=== PATIENT | female | born 1935 | race Caucasian/White ===

== ENCOUNTER 2019-03-24 08:28 | Inpatient (IN) ==
--- NOTE | 2019-03-24 09:22 | Diag Imaging Result Doc PS360 ---
EXAM: HIP 1 VIEW LEFT 03/24/2019 HISTORY: hip fracture by rad report TECHNIQUE: Left hip one view COMMENT: There is a fracture of the lower femoral neck. This was not present at the time the CT examination of 03/07/2018. There are no previous plain radiographs available for comparison. There are old fractures of the inferior pubic rami and of the superior pubic ramus on the left. This was the case at the time the previous CT exam. IMPRESSION: Osteoporosis. Fracture of the left femoral neck. Electronically signed by Kane Interiano 03/24/2019 9:20 AM
--- NOTE | 2019-03-24 09:34 | PROVIDER DOCUMENTATION ---
HPI-General Adult - General Chief Complaint: Hip Injury Stated Complaint: hip fracture Time Seen by Provider: 03/24/19 09:27 Source: patient Allergies/Adverse Reactions: Patient Allergies Allergy/AdvReac Type Severity Reaction Status Date / Time promethazine HCl * Allergy Unknown Unknown Verified 03/24/19 09:58 [From Phenergan] quinine Allergy Unknown Verified 03/24/19 09:58 Home Medications: Home Medication List Medication Instructions Recorded Confirmed Last Taken Type Albuterol [Albuterol Neb] 2.5 mg INH RTQ6H 09/16/13 11/07/18 06/05/18 History Polyethylene Glycol 3350 [Miralax] 17 gm PO DAILY 09/16/13 11/07/18 06/05/18 History Donepezil [Aricept] 10 mg PO QHS 09/21/14 11/07/18 06/04/18 History Tiotropium [place] Inhaler 1 puff INH DAILY 09/21/14 11/07/18 06/05/18 History [Spiriva] Acetaminophen [Tylenol] 650 mg PO Q6H PRN PRN tablet 06/13/18 11/07/18 Unknown Rx Hydrocodone/APAP 5 mg/325 mg 1 ea PO Q6H PRN PRN #10 tab 06/13/18 11/07/18 Unknown Rx [[place]-5] Memantine [Namenda] 5 mg PO HS 11/07/18 11/07/18 Unknown History Potassium Chloride [Klor-Con 10] 10 mg PO BID 11/07/18 11/07/18 Unknown History - History of Present Illness -Gen Adult Nature of Presenting Problems: The pt is an 83yof that is non-verbal with was appears to be end-stage dementia that presents to the ed with pain to the left hip. Initial xray shows a fracture to the left femoral neck. She has osteoporosis. according to the nurse, the patient suffered from a fall early this morning. She also has a skin tear to her elbows bilaterally with steri-strips present. No active bleeding noted. She presents in NAD. Location of Pain/Injury: reports: lower extremity (left hip) Pain Radiation: reports: no radiation Quality of Pain: reports: other (unknown. pt is non-verbal) Onset/Duration: reports: this morning Similar Symptoms Previously?: No Recently seen or treated by another doctor?: No Review of Systems - Adult - REVIEW OF SYSTEMS - ADULT Constitutional: reports: no symptoms reported. denies: fever, fatique, night sweats Eyes: reports: no symptoms reported. denies: decreased vision, blurred vision, double vision Ears, Nose, Mouth & Throat: reports: no symptoms reported. denies: epistaxis, sinus problem, nose pain Cardiovascular: reports: no symptoms reported. denies: heart murmur, irregular heart rate, orthopnea Respiratory: reports: no symptoms reported. denies: chronic cough, cough, dyspnea on exertion Gastrointestinal: reports: no symptoms reported. denies: abdominal pain, hematemesis, constipation Genitourinary: reports: no symptoms reported. denies: flank pain, hematuria, hesitency Musculoskeletal: reports: see HPI, other (left femoral neck pain) Integumentary: reports: see HPI, other (bilateral sin tears to elbows) Neurological: reports: see HPI, other (none verbal, end stage dementia) Psychiatric: reports: no symptoms reported Endocrine: reports: no symptoms reported Hematologic/Lymphatic: reports: no symptoms reported Allergic/Immunologic: reports: no symptoms reported All Other Systems: Reviewed and Negative Past History - Adult - PAST MEDICAL HISTORY-ADULT Review of Records: reports: Old Records Reviewed, Nursing Assessment Review, Medications Reviewed, Social history reviewed & non-contributory. Major Childhood Illnesses: reports: history unknown Cardiovascular: reports: HTN Respiratory: reports: COPD Gastrointestinal: reports: denies history Obstetrical/Gynecological: reports: denies history Genitourinary: reports: kidney disease Musculoskeletal: reports: denies history Neurological: reports: CVA, dementia Psychiatric: reports: denies history Endocrine/Immune: reports: denies history Other Conditions: reports: denies history - PRIOR SURGERIES/PROCEDURES Surgical/Procedure History: reports: cholecystectomy, orthopedic (extremity) - PRIOR HOSPITALIZATIONS Prior Hospitalizations: reports: for similar symptoms - IMMUNIZATION STATUS Childhood Immunizations: See Nurse Assessment Flu Vaccine: See Nurse Assessment - FAMILY HISTORY Family History: reviewed, not pertinent - SOCIAL HISTORY Smoking: denies Substance Use: none/never Alcohol Use Frequency: never Living Situation: care facility ([facility]) Physical Exam-General - PHYSICAL EXAM-ADULT Initial Vital Signs Reviewed: Yes - CONSTITUTIONAL General Appearance: appears well, alert, no apparent distress - EYES Eyes: PERRL/EOMI - HEAD, EARS, NOSE, MOUTH & THROAT HENMT: normocephalic/atraumatic, moist mucous membranes, normal ENT inspection - NECK Neck: non-tender, full range of motion, supple - RESPIRATORY Respiratory: chest non-tender, lungs clear, normal breath sounds - CARDIOVASCULAR Cardiovascular: normal peripheral pulses, regular rate, rhythm, no edema - GASTROINTESTINAL (ABDOMEN) Abdominal Exam: normal bowel sounds, non tender, soft - LYMPHATIC Lymphatic: no adenopathy - MUSCULOSKELETAL Back Exam: normal inspection, no CVA tenderness, no vertebral tenderness. negative: CVA tenderness Extremity: other (deformity to left hip). negative: normal range of motion, non-tender, normal gait, normal inspection, calf tenderness - SKIN Integumentary: normal color, normal turgor, warm/dry, abrasion(s) (bilateral elbows) - NEUROLOGIC Neurologic: other (non-verbal, end-stage dementia) - PSYCHIATRIC Psych/Mental Status: disoriented x 3 Progress - PLAN OF CARE/RESULTS Progress/Plan/Lab Results: Vital Signs - 8 hr 03/24/19 08:38 Temperature 98.7 F Pulse Rate 88 Respiratory Rate 16 Blood Pressure 140/87 O2 Sat by Pulse Oximetry 94 L Orders Category Date Time Status IV Insertion ORDERED Care 03/24/19 09:14 Active HIP 1 VIEW LEFT [RAD] Stat Exams 03/24/19 09:02 Completed CBC WITH DIFF [HEME] Stat Lab 03/24/19 09:13 Uncollected CMP [COMPREHENSIVE METABOLIC PANEL] [CHEM] Stat Lab 03/24/19 09:13 Uncollected Result Diagrams: 03/24/19 09:37 03/24/19 09:37 - XRAY 1 XRAY: Left XRAY Study: Hip ( COMMENT: There is a fracture of the lower femoral neck. This was not present at the time the CT examination of 03/07/2018. There are no previous plain radiographs available for comparison. There are old fractures of the inferior pubic rami and of the superior pubic ramus on the left. This was the case at the time the previous CT exam. IMPRESSION: Osteoporosis. Fracture of the left femoral neck.) Impression: Normal - CONSULTS/PCP/HOSPITALIST Notification #1 *Consult/PCP/Hospitalist*: Lenore Skinner Discussed: 10:08 Consult Disposition: Admit (Admit to PCP and consult) #2 Consult: Dr. Jorge Time Discussed: 10:23 Consult Disposition: Admit Departure - Departure Date of Disposition Decision: 03/24/19 Time of Disposition Decision: 10:25 DIAGNOSIS: Femoral neck fracture Qualifiers: Encounter type: initial encounter Fracture type: closed Laterality: left Qualified Code(s): S72.002A - Fracture of unspecified part of neck of left femur, initial encounter for closed fracture Fall Qualifiers: Encounter type: initial encounter Qualified Code(s): W19.XXXA - Unspecified fall, initial encounter Disposition: ADMITTED INPATIENT 09 Certified Medical Emergency: Emergent Condition: Stable Additional Freetext Instructions: ED Follow Up Instructions: You have been treated by a care provider in the Emergency Department. These instructions are being provided to you so you can have an understanding of how to care for yourself upon discharge. [facility] you are responsible for making arrangements for follow-up care by a physician of your choice. Take all prescribed medications as directed. Return to the Emergency Department immediately for any new or worsening symptoms. You may call the Physician Referral phone number at [phone] to obtain a list of Physicians who are taking new patients. Referrals and Follow-Ups: Raphael Ramirez MD [Primary Care Provider] - - Critical Care Note This patient required my direct & personal management of CC.: No Attestation - Physician/ RONA Attestation Patient care was provided by Advanced Practice Provider:: Yes Advanced Practice Provider:: Nik Uribe Advanced Practice Provider documentation review:: The Mid-level provider documentation, treatment plan and medical decision making was reviewed by the jm kruger who agrees with all treatment and medical decision making by the MLP. The physician spent face to face time with patient:: No Advanced Practice Provider documentation review:: Supervising physician onsite and consulted in the evaluation and care of this patient. The physician did not have a face to face encounter with the patient.
[2019-03-24 09:59] LABS: ALBUMIN 4.6 g/dL (3.5-5.0); BASO# 0.01 X1000 (0.0-0.2); BASO% 0.1 % (0.0-0.8); CALCIUM 9.6 mg/dL (8.8-10.2); CREATININE 1.1 mg/dL (0.5-0.9); HEMATOCRIT 37.6 % (37.0-47.0); IMM GRAN# 0.03 X1000 (0.0-0.04); IMM GRAN% 0.2 % (0.0-0.5); LYMPH# 1.04 X1000 (1.2-3.4); LYMPH% 6.5 % (20.5-51.1); MCH 29.4 PG (27-31); MCHC 34.6 g/dL (33-37); MCV 85.1 FL (81-99); MPV 9.7 FL (7.4-10.4); NEUT# 14.11 X1000 (1.4-6.5); NEUT% 88.2 % (42.2-75.2); PLT 213 X1000 (130-400); POTASSIUM 4.6 mmol/L (3.5-5.1); RBC 4.42 XMIL (4.2-5.4); RDW 12.9 % (11.5-14.5); TOTAL BILIRUBIN 0.52 mg/dL (0.20-1.00); TOTAL PROTEIN 7.5 g/dL (6.3-8.3); WBC 15.99 X1000 (4.8-10.8)
[2019-03-24 10:00] LABS: ALB/GLOB RATIO 1.6
--- NOTE | 2019-03-24 10:30 | Diag Imaging Result Doc PS360 ---
EXAM: CT HEAD/C-SPINE W/O CONTRAST 03/24/2019 HISTORY: fall TECHNIQUE: This exam was performed using automated exposure control, adjustment of mA or kV according to patient size, and/or use of iterative reconstruction technique. COMMENT: There is severe cerebral atrophy with ex vacuo enlargement of the ventricular system. There is extensive chronic microvascular white matter disease. There is no evidence of bleed or abnormal extra-axial fluid collection. Compared to 11/07/2018 there has been no significant change in the appearance of the brain. The calvarium is intact. The visualized paranasal sinuses are clear. Cervical spine: There is some retrolisthesis of C4 on C3 and disc space narrowing is present at the C4-5 C5-6 and C6-7 levels with posterior osteophyte formation at C5-6. These findings were all present at the time of the previous study of 01/19/2016. There is no evidence of acute fracture or subluxation. There is some facet arthropathy particularly on the right side at the C2-3, C3-4 and C4-5 levels. The facets are aligned. IMPRESSION: Chronic cerebral atrophy and microvascular white matter disease. Degenerative changes in the cervical spine without evidence of acute bony abnormality. Electronically signed by Kane Interiano 03/24/2019 10:27 AM
--- NOTE | 2019-03-24 10:31 | Diag Imaging Result Doc PS360 ---
EXAM: HIP 1 VIEW LEFT 03/24/2019 HISTORY: fall TECHNIQUE: Lateral left hip COMMENT: Visualization of the femoral neck is somewhat suboptimal. There is clearly a fracture however as seen on the AP view. IMPRESSION: Fractured femoral neck. Electronically signed by Kane Interiano 03/24/2019 10:28 AM
[2019-03-24 10:32] LABS: LARGE PLATELETS 1+; LYMPHS 9 % (21-51); MONO 6 % (1-9); SEGS 85 % (42-75)
[2019-03-24 11:15] LABS: URINE SOURCE CATH
[2019-03-24 11:18] LABS: BILIRUBIN URINE NEGATIVE (NEGATIVE); BLOOD URINE NEGATIVE (NEGATIVE); COLOR YELLOW; GLUCOSE URINE NEGATIVE (NEGATIVE); KETONE URINE NEGATIVE (NEGATIVE); LEUKOCYTES URINE LARGE (NEGATIVE); NITRITE URINE NEGATIVE (NEGATIVE); PH URINE 7.5; PROTEIN URINE TRACE mg/dL (NEGATIVE); SP GRAVITY URINE 1.011; TURBIDITY URINE CLEAR (CLEAR); UROBILINOGEN URINE NORMAL (NORMAL)
[2019-03-24 11:20] LABS: UR EPITHELIAL CELLS >10 /HPF (<10); URINE BACTERIA 3+ /HPF; URINE RBC <10 /HPF (<10)
[2019-03-24] MEDS ORDERED: DEMEROL IV PRN (11:56)
[2019-03-24] MEDS ORDERED: TYLENOL PO PRN (11:56)
[2019-03-24] MEDS: NS 1,000 ML IV SCH (14:12)
--- NOTE | 2019-03-24 14:54 | HISTORY AND PHYSICAL ---
CHIEF COMPLAINT: Fall and injury to the left hip. HISTORY OF PRESENT ILLNESS: This is one of several [facility] admissions for this 83-year-old white female, patient of Dr. Ramirez, with dementia and history of several falls, resident of assisted living facility in [place]. She fell this morning, and presented to the emergency room with left hip pain. X-ray revealed fracture of the left femoral neck. There is previous history of osteoporosis and previous total hip replacement on the right. She also has fallen and suffered fractures of inferior and superior pubic ramus on the left and inferior ramus on the right. She is admitted for orthopedic consultation and repair of her left hip. PAST MEDICAL HISTORY: Significant for right hip replacement. PRESENT MEDICATIONS: 1. Donepezil 10 mg at bedtime. 2. Acetaminophen 650 mg p.o. every 6 hours p.r.n. fever or pain. 3. Albuterol via nebulizer 2.5 mg every 6 hours. 4. Namenda 5 mg at bedtime. 5. MiraLAX 17 grams once daily. 6. Potassium chloride 10 mEq b.i.d. 7. Spiriva daily. ALLERGIES: Quinidine and Phenergan. REVIEW OF SYSTEMS: Significant for dementia, osteoporosis, and history of previous fractures due to falls. Her weight has been fairly stable. She is a resident of an assisted living facility. PHYSICAL EXAMINATION: VITAL SIGNS: Temperature 98.7 degrees, heart rate 88, respirations 16, blood pressure 140/87, O2 saturation on room air 94%. GENERAL: The patient is a well-developed, elderly, thin, white female in no apparent distress. She cannot give any history, and has no memory of her fall this morning. There is moderate pain with motion of the left hip. Motion of the right hip reveals no pain. There is a contusion of the top of her left shoulder. HEENT: Pupils equal, round, and reactive to light. Tympanic membranes without inflammation. Pharynx benign. NECK: Supple with no mass or lymphadenopathy. HEART: Regular rate and rhythm with no murmur, rub, or gallop. LUNGS: Clear with no rales or rhonchi. ABDOMEN: Soft with no mass or organomegaly. EXTREMITIES: Pain with range of motion of the left hip. There is no ankle edema. RECTAL/GENITALIA: Deferred. IMPRESSION: 1. Fracture of her left femoral neck related to fall. 2. Alzheimer's dementia. 3. Osteoporosis. PLAN: Admit for pain control and orthopedic consultation to repair her hip fracture. cc: Kurt Patel MD
[2019-03-24] MEDS: ALBUTEROL NEB INH SCH ×2 (15:15→19:48)
--- NOTE | 2019-03-24 15:28 | Diag Imaging Result Doc PS360 ---
EXAM: CT PELVIS W/O CONTRAST 03/24/2019 HISTORY: Left Hip Fracture TECHNIQUE: This exam was performed using automated exposure control, adjustment of mA or kV according to patient size, and/or use of iterative reconstruction technique. COMMENT: The current examination is compared with the previous study of 03/07/2018. There is a fracture of the base of the femoral neck on the left. This was not the case at the time the previous study. Some involvement of the trochanters is present. There has been previous internal fixation of the right hip. There is a Cadena catheter in the bladder. There are old fractures of the left pubic rami. Note is made of an aortic aneurysm distally just above the bifurcation measuring at least 3.2 cm transversely and 3.1 cm in AP dimension. IMPRESSION: Fracture left femoral neck. Electronically signed by Kane Interiano 03/24/2019 3:26 PM
[2019-03-24 22:13] LABS: URINE SOURCE CATH
[2019-03-24 22:40] LABS: BILIRUBIN URINE NEGATIVE (NEGATIVE); BLOOD URINE SMALL (NEGATIVE); COLOR YELLOW; GLUCOSE URINE NEGATIVE (NEGATIVE); KETONE URINE NEGATIVE (NEGATIVE); LEUKOCYTES URINE MODERATE (NEGATIVE); NITRITE URINE NEGATIVE (NEGATIVE); PH URINE 5.5; PROTEIN URINE TRACE mg/dL (NEGATIVE); SP GRAVITY URINE 1.017; TURBIDITY URINE CLEAR (CLEAR); UROBILINOGEN URINE NORMAL (NORMAL)
[2019-03-24 22:41] LABS: UR EPITHELIAL CELLS <10 /HPF (<10); URINE BACTERIA NEGATIVE /HPF; URINE RBC <10 /HPF (<10)
[2019-03-24] MEDS: NAMENDA PO SCH (23:43)
[2019-03-24] MEDS: ARICEPT PO SCH (23:43)
[2019-03-24] MEDS: KLOR-CON PO SCH (23:43)
[2019-03-25] MEDS: NS 1,000 ML IV SCH ×3 (04:15→23:55)
[2019-03-25 06:53] LABS: BASO# 0.02 X1000 (0.0-0.2); BASO% 0.2 % (0.0-0.8); EOS# 0.03 X1000 (0.0-0.7); EOS% 0.3 % (0.0-10.0); HEMATOCRIT 34.2 % (37.0-47.0); HEMOGLOBIN 11.3 g/dL (12.0-16.0); IMM GRAN# 0.02 X1000 (0.0-0.04); IMM GRAN% 0.2 % (0.0-0.5); LYMPH# 2.17 X1000 (1.2-3.4); LYMPH% 18.3 % (20.5-51.1); MCV 87.9 FL (81-99); MONO# 1.14 X1000 (0.11-0.59); MONO% 9.6 % (1.7-9.3); MPV 9.6 FL (7.4-10.4); NEUT# 8.48 X1000 (1.4-6.5); NEUT% 71.4 % (42.2-75.2); PLT 192 X1000 (130-400); RBC 3.89 XMIL (4.2-5.4); RDW 13.1 % (11.5-14.5); WBC 11.86 X1000 (4.8-10.8)
--- NOTE | 2019-03-25 06:59 | PROGRESS NOTE ---
DATE: 03/25/2019 SUBJECTIVE: Ms. Regalado is an 83-year-old, white, female patient, a resident of [facility]. Admitted status post fall and fracture of the left femoral neck. The patient has advanced dementia. History part was limited. The patient also found to have a UTI. No high- grade fever or chills. Admission history and physical noted. No history suggestive of chest pain or palpitations. PHYSICAL EXAMINATION: Vital Signs: Noted. Neck: Supple. No JVD. Lungs: Bibasilar crepitation. Heart: S1 and S2 heard. Abdomen: Soft, scaphoid. Bowel sounds present. Extremities: No cyanosis, clubbing. Disuse atrophy of lower limbs. SANDBLAST OR SHOTBLAST EQUIPMENT TENDER: Alert, awake. Advanced dementia. Uncooperative for detailed exam. LABORATORY DATA: Done yesterday did reveal leukocytosis. Hemoglobin 13, hematocrit 37.6, platelet count was 213,000. BUN was 26, creatinine 1.1. Urinalysis did reveal moderate leukocytosis, 10 to 20 WBCs. Urine culture result is pending. CONSIDERATION: 1. Left femur neck fracture. 2. Advanced dementia. 3. Urinary tract infection. 4. Osteoporosis. PLAN: Patient is going to have surgery. I am going to treat her UTI with Invanz. Supportive care, close observation CT scan results reviewed. I am going to repeat appropriate lab. Then we will make necessary recommendations. cc: MD Kurt Iraheta MD
--- NOTE | 2019-03-25 07:17 | EKG Report ---
Test Performed on : 03/25/2019 06:50:35 AM Test Reason : CP Blood Pressure : / mmHG Vent. Rate : 099 BPM Atrial Rate : 099 BPM P-R Int : 142 ms QRS Dur : 074 ms QT Int : 374 ms P-R-T Axes : 035 044 -14 degrees QTc Int : 479 ms Sinus rhythm. with occasional premature ventricular complexes. Nonspecific ST and T wave abnormality Abnormal ECG When compared with ECG of 13-SEP-2018 13:51, premature ventricular complexes. are now present T wave inversion now evident in Inferior leads Confirmed by Nehemias NICOLAS, Buddy Lewis ([id number]) on 03/25/2019 9:28:30 AM
[2019-03-25] MEDS: ALBUTEROL NEB INH SCH ×4 (07:32→19:11)
[2019-03-25] MEDS: SPIRIVA INH SCH (07:34)
[2019-03-25 07:54] LABS: ALB/GLOB RATIO 1.6; CALCIUM 8.7 mg/dL (8.8-10.2); CREATININE 0.9 mg/dL (0.5-0.9); POTASSIUM 3.9 mmol/L (3.5-5.1); TOTAL BILIRUBIN 0.69 mg/dL (0.20-1.00); TOTAL PROTEIN 6.5 g/dL (6.3-8.3)
[2019-03-25] MEDS: KLOR-CON PO SCH ×2 (08:36→23:53)
[2019-03-25] MEDS: MIRALAX PO SCH (08:36)
[2019-03-25] MEDS: INVANZ 1 GM/NS 1 GM/50 ML IVPB IV SCH (08:39)
--- NOTE | 2019-03-25 10:16 | ORTHOPAEDICS PROGRESS NOTE ---
DATE: 03/25/2019 SUBJECTIVE: The patient is an 83-year-old female with significant dementia who is status post fall, who resides at [facility] and status post fall. OBJECTIVE: On physical exam, the patient is significantly confused and noncooperative with the exam. CT of her pelvis revealed a left basilar neck fracture which was not visualized on previous CT scan from 03/07/2018. IMPRESSION: Left basicervical neck fracture. PLAN: At this point, we will discuss with the patient's family regarding treatment and would recommend proceeding with intramedullary nailing of the left femur. cc: MD Kurt Zarate MD
--- NOTE | 2019-03-25 10:24 | ORTHOPAEDICS CONSULTATION ---
DATE: 03/24/2019 HISTORY OF PRESENT ILLNESS: She has significant dementia and resides at [facility]. She has had a history of several falls. She fell earlier the morning of the day of admission and was in the emergency room. She has discomfort and hip pain. X-rays revealed a left hip fracture, femoral neck fracture. Orthopedic consultation requested. MEDICATIONS: MiraLAX 17 g p.o. daily, albuterol inhaler q.8 hours, Aricept 5 mg p.o. at bedtime, Spiriva 1 puff inhaler daily, [place] 5 mg 1 p.o. q.6 hours p.r.n., calcium carbonate chewable tablet 500 mg p.o. b.i.d., Atrovent nebulizer inhaler q.8 hours, multivitamin 1 p.o. daily, Advair 1 each inhaler b.i.d. ALLERGIES: Promethazine HCL. Quinine. PAST MEDICAL HISTORY: Dementia, hypertension, COPD, chronic kidney disease. PAST SURGICAL HISTORY: Cholecystectomy, status post ORIF right hip, status post retrograde intramedullary nailing of the right distal femur. PHYSICAL EXAMINATION: Patient is noncooperative with the examination secondary to some significant dementia. Difficult to assess. She does retract with gentle movement of the left lower extremity. Calf is soft. IMAGING: X-rays were reviewed. Left femoral neck fracture. The lateral was difficult to assess. IMPRESSION: Left femoral neck fracture. PLAN: At this point, given patient's findings, we will obtain a CT scan for further assessment of the fracture. cc: MD Kurt Zarate MD
[2019-03-25] MEDS ORDERED: XYLOCAINE-MPF 2% ONE (14:01)
[2019-03-25] MEDS ORDERED: FENTANYL ONE (14:01)
[2019-03-25] MEDS ORDERED: SODIUM CHLORIDE 0.9% 10 ML ONE (14:01)
[2019-03-25] MEDS ORDERED: ROBINUL ONE (14:01)
[2019-03-25] MEDS ORDERED: DIPRIVAN 1% ONE (14:02)
[2019-03-25] MEDS ORDERED: KEFZOL 1 GM/D5W 1 GM/50 ML IVPB ONE (14:54)
[2019-03-25] MEDS ORDERED: ZOFRAN ONE (15:29)
--- NOTE | 2019-03-25 18:19 | OPERATIVE NOTE ---
PROCEDURE DATE: 03/25/2019 PREOPERATIVE DIAGNOSIS: Left basicervical femoral neck fracture. POSTOPERATIVE DIAGNOSIS: Left basicervical femoral neck fracture. PROCEDURE PERFORMED: Left trochanteric fixation nail placement short size 12 with an 85 mm helical blade and a 38 mm distal locking screw. ANESTHESIA: General. SURGEON: Leif Lehman MD. ANNEALER HELPER: Monalisa Gomez PA-C, who was present for the critical portions of the case whose assistance was critical for placement of the implants and closure and decision making. Her assistance was necessary for the success of the case. BLOOD LOSS: Minimal. DESCRIPTION OF PROCEDURE: The patient was brought to the operative suite and placed in supine position. After successful administration of general anesthesia, the patient was placed on the OSI table in the usual position for left hip. The left hip was then prepped and draped in usual sterile fashion. A longitudinal incision was made proximal to the tip of the greater trochanter. A guide pin was placed in center of the femoral canal, was reamed with a cannulated reamer. The 12 nail was then driven into place then through a stab incision laterally using the proximal guide. A guide pin was placed in center of the femoral head on AP and lateral images. It was reamed, and an 85 mm screw was driven into place. It was locked proximally and then backed off a half turn to allow for compression. Traction was released, and it was compressed. Next, attention was directed to the distal locking screw. Using the guide, it was drilled, measured to 38 mm, and a 38 mm screw was driven into place. Excellent reduction and placement of hardware was obtained on AP and lateral images. Wounds were copiously irrigated. The skin edges were approximated with 2-0 Vicryl. Skin was closed with skin bridgette. A sterile dressing was applied. The patient tolerated the procedure well without complication. At the end the procedure, all counts correct x2. The patient was transferred to the recovery room in stable condition. cc: MD Kurt Garsia MD
[2019-03-25] MEDS ORDERED: MORPHINE IV PRN (20:07)
[2019-03-25] MEDS ORDERED: MILK OF MAGNESIA PO PRN (20:07)
[2019-03-25] MEDS ORDERED: ZOFRAN IV PRN (20:07)
[2019-03-25] MEDS ORDERED: OXY IR PO PRN (20:07)
[2019-03-25] MEDS ORDERED: HALDOL IV PRN ×2 (20:11→20:15)
[2019-03-25] MEDS ORDERED: NS 1,000 ML IV SCH (20:15)
[2019-03-25] MEDS: COLACE PO SCH (23:52)
[2019-03-25] MEDS: TYLENOL PO SCH (23:52)
[2019-03-25] MEDS: ARICEPT PO SCH (23:52)
[2019-03-25] MEDS: NAMENDA PO SCH (23:53)
[2019-03-25] MEDS: PERIDEX MT SCH (23:54)
[2019-03-26] MEDS: ALBUTEROL NEB INH SCH ×4 (03:34→18:38)
[2019-03-26] MEDS: TYLENOL PO SCH ×2 (05:10→17:30)
[2019-03-26 06:09] LABS: HEMATOCRIT 30.6 % (37.0-47.0); HEMOGLOBIN 9.9 g/dL (12.0-16.0)
[2019-03-26 06:46] LABS: CALCIUM 8.3 mg/dL (8.8-10.2); CREATININE 0.9 mg/dL (0.5-0.9); POTASSIUM 3.9 mmol/L (3.5-5.1)
[2019-03-26] MEDS: SPIRIVA INH SCH (07:51)
[2019-03-26] MEDS: FERROUS SULFATE PO SCH (08:47)
[2019-03-26] MEDS: PERIDEX MT SCH (08:48)
[2019-03-26] MEDS: MIRALAX PO SCH (08:48)
[2019-03-26] MEDS: KLOR-CON PO SCH ×2 (08:52→22:30)
[2019-03-26] MEDS: GENTAMICIN 0.3% OPH DROPS BOTH EYES SCH ×3 (08:53→17:21)
[2019-03-26] MEDS: INVANZ 1 GM/NS 1 GM/50 ML IVPB IV SCH (08:54)
--- NOTE | 2019-03-26 08:57 | PROGRESS NOTE ---
DATE: 03/26/2019 SUBJECTIVE: Ms. Regalado is doing fair. The patient does have advanced dementia. History part was limited. The patient underwent surgery yesterday. The patient had ORIF of left base of cervical femoral neck fracture done by Dr. Lehman. The patient denied any fever or chills. OBJECTIVE: Vital Signs: Stable. HEENT: Nurse reported conjunctival congestion and matting of the eyelid. Bilateral conjunctiva congestion. Skin: Patient does have skin tear to both the arms. We are doing local wound care. Neck: Supple. No JVD. Lungs: Bilateral good air entry present. Cardiovascular: S1 and S2 heard. Abdomen: Soft and nontender. Bowel sounds present. TESTING MACHINE OPERATOR: Alert and awake. Advanced dementia. Uncooperative for detailed neurologic examination. CONSIDERATION: The patient has fracture of the left femoral neck status post surgery, conjunctivitis, advanced dementia, osteoporosis, and blood-loss anemia. BMP result is pending. UTI. We will continue current treatment. Gentamicin eyedrops. Encourage oral feeding. Overall, there is no family member available to discuss her condition. cc: MD Kurt Iraheta MD
--- NOTE | 2019-03-26 09:55 | PROGRESS NOTE ---
DATE: 03/26/2019 SUBJECTIVE: Danie Regalado is an 83-year-old female who is postoperative day 1 from a left TFN. She is resting comfortably. OBJECTIVE: She is a well-developed female who has dementia, but is otherwise cooperative. Her vital signs are stable. She is afebrile. Her dressings are clean, dry, intact without sign of infection. LABORATORY DATA: Her hematocrit is 30.6. Her hemoglobin is 9.9. ASSESSMENT: Stable left hip. PLAN: We will have therapy work with her today. Due to her dementia, though it is likely that there be minimal she will do. We will change her dressing tomorrow and if everything looks good, it is okay for her to go back to rehab tomorrow. I have discussed this with Dr. Ramirez. cc: MD Kurt Garsia MD
[2019-03-26] MEDS: NS 1,000 ML IV SCH ×2 (20:16→21:53)
[2019-03-26] MEDS: ARICEPT PO SCH (22:30)
[2019-03-26] MEDS: COLACE PO SCH (22:30)
[2019-03-26] MEDS: NAMENDA PO SCH (22:30)
[2019-03-27] MEDS: PERIDEX MT SCH ×2 (01:22→09:56)
[2019-03-27] MEDS: ALBUTEROL NEB INH SCH ×2 (03:44→11:02)
[2019-03-27 05:51] LABS: HEMATOCRIT 29.2 % (37.0-47.0); HEMOGLOBIN 9.5 g/dL (12.0-16.0)
[2019-03-27] MEDS: SPIRIVA INH SCH (08:02)
[2019-03-27] MEDS: INVANZ 1 GM/NS 1 GM/50 ML IVPB IV SCH (09:48)
[2019-03-27] MEDS: GENTAMICIN 0.3% OPH DROPS BOTH EYES SCH (09:49)
[2019-03-27] MEDS: MIRALAX PO SCH (09:52)
[2019-03-27] MEDS: NS 1,000 ML IV SCH (09:54)
[2019-03-27] MEDS: FERROUS SULFATE PO SCH (09:55)
[2019-03-27] MEDS: KLOR-CON PO SCH (09:56)
[2019-03-27] MEDS: TYLENOL PO SCH ×2 (09:56)
--- NOTE | 2019-03-27 10:28 | DISCHARGE SUMMARY ---
ADMISSION DATE: 03/24/2019 DISCHARGE DATE: FINAL DISCHARGE DIAGNOSES: 1. Left hip fracture, status post surgery. 2. Advanced Alzheimer's type dementia. 3. Chronic obstructive pulmonary disease. 4. Blood-loss anemia. 5. Urinary tract infection. 6. Osteoporosis. HOSPITAL COURSE: Ms. Branch is an 83-year-old, white female patient, resident of [facility], admitted status post fall. Found to have fracture of the left femoral neck. The patient was admitted, evaluated by orthopedic surgeon. The patient underwent intramedullary nailing of the left femur done by Dr. Lehman. The patient tolerated procedure fairly well. The patient is doing better. The patient did have advanced dementia. History part is limited. No high-grade fever, chills. Vital signs stable. Oral intake is fair to poor. No nausea or vomiting. Initial urinalysis did reveal UTI. I started patient on Invanz because of history of ESBL, positive UTI in the past. Also patient found to have conjunctivitis. I started her on gentamicin eye drops. Clinically, patient is doing better. The patient received maximum benefit of hospitalization. DISCHARGE EXAMINATION: Vital Signs: Vital signs noted. Blood pressure 126/49, pulse 95, respirations 15, temperature 97.5 degrees. Skin: Senile turgor. Neck: Supple. No JVD. Lungs: Bibasilar crepitations. Heart: S1 and S2 heard. Abdomen: Soft, scaphoid. Bowel sounds present. 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 Her blood work done today: Hemoglobin 9.5, hematocrit 29.2. Electrolytes done yesterday: BUN 17, creatinine 0.9, sodium 141. Urinalysis did reveal moderate leukocyte, 10 to 20 WBC. Urine culture which was placed after the patient put on antibiotics was no growth. The patient had CT scan of the pelvis done, which revealed fracture of the left femoral neck. DISCHARGE MANAGEMENT: Overall, patient received maximum benefit of hospitalization. She is going to assisted where we can watch her closely. I am going to continue pain management, close observation, treat urinary tract infection with oral antibiotics, oxygen, bronchodilator treatment. Overall, discharge condition satisfactory. Overall prognosis fair to guarded. I am going to try to call her son. Discharge order as per separate sheet. cc: MD Kurt Iraheta MD
[2019-03-27 12:41] VITALS: BP 142/45
== END 2019-03-27 13:33 | DRG 481 ==
LOC: SUPCPDRO → ED 08:28 → 4N 11:33
PROVIDERS: ADMIT Family Medicine; ATTEND Internal Medicine
CPT/HCPCS: 51702; 70450; 72125; 72192; 73500; 73501; 76000; 80048; 80053; 81001; 82550; 83735; 84484; 85014; 85018; 85025; 86850; 86900; 86901; 87088; 93005; 93010; 94640; 94761; 94799; 97110; 97162; 99285; A9270; J0690; J1335; J2175; J2405; J3010; J7030